=== PATIENT | female | born 1995 | race Asian ===

== ENCOUNTER 2023-09-09 05:24 | Emergency (ER) | payer SELFPAY ==
[~2023-09-09] VITALS: Ht 162.6 cm; Wt 63.6 kg
[2023-09-09 05:35] VITALS: TEMP 97
[2023-09-09 06:24] LABS: BASOPHILS % (AUTO) 0.8 % (0.0-2.0); EOSINOPHILS % (AUTO) 2.1 % (1.0-6.0); HEMATOCRIT 42.1 % (36-46); LYMPHOCYTES % (AUTO) 16.5 % (22.0-44.0); MEAN CORPUSCULAR HEMOGLOBIN 28.9 pg (26.0-34.0); MEAN CORPUSCULAR HGB CONC 33.2 G/dL (31.0-37.0); MEAN CORPUSCULAR VOLUME 87 fL (80-100); MONOCYTES # (AUTO) 0.7 K/uL (0.1-1.0); MONOCYTES % (AUTO) 5.3 % (2.0-9.0); NEUTROPHILS # (AUTO) 9.3 K/uL (1.8-7.7); NEUTROPHILS % (AUTO) 75.3 % (40.0-70.0); PLATELET COUNT (AUTO) 340 K/uL (150-450); RED BLOOD CELL COUNT(AUTO) 4.83 MIL/uL (4.00-5.20); RED CELL DISTRIBUTION WIDTH 13.3 % (11.5-14.5); WHITE BLOOD COUNT (AUTO) 12.3 K/uL (4.5-11.0)
[2023-09-09 06:32] LABS: ANION GAP 11 mmol/L (8-16); CALCIUM, TOTAL 9.2 mg/dL (8.8-10.5); CARBON DIOXIDE 25 mmol/L (22-29); CHLORIDE 102 mmol/L (98-107); CREATININE 0.74 mg/dL (0.60-1.30); GLOMERULAR FILTR. RATE CALC > 60 mL/min (>60); GLUCOSE,RANDOM 103 mg/dL (70-110); SODIUM SERUM 138 mmol/L (136-145); UREA NITROGEN, BLOOD 12 mg/dL (7-18)
[2023-09-09 07:01] LABS: HCG,QUANTITATIVE 2572 mIU/mL (0-6)
[2023-09-09 08:45] VITALS: BP 127/77; PULSE 80; RESP 18
== END 2023-09-09 09:17 | disposition home or self-care (01) ==
LOC: EMS 05:26
DX: O02.1 Missed abortion (principal); Z3A.12 12 weeks gestation of pregnancy
CPT/HCPCS: 76801; 80048; 84702; 85025; 86901; 99284